=== PATIENT | female | born 1955 | race Caucasian/White ===

== ENCOUNTER 2018-09-03 12:12 | Emergency (ER) | payer OTHER ==
[~2018-09-03] VITALS: Ht 160 cm; Wt 56.7 kg
[2018-09-03] MEDS ORDERED: NEURONTIN100 MG ORAL (12:34)
[2018-09-03] MEDS ORDERED: METHOTREXATE2.5 MG PO (12:34)
[2018-09-03] MEDS ORDERED: PAXIL10 MG ORAL (12:34)
[2018-09-03 12:46] VITALS: BP 105/68
[2018-09-03] MEDS ORDERED: TYLENOL EXTRA500 MG ORAL (12:52)
[2018-09-03] MEDS ORDERED: ZOFRAN4 M3 ORAL (12:52)
[2018-09-03 12:57] VITALS: BP 100/64
--- NOTE | 2018-09-03 18:03 | Emergency Room Report ---
History of Present Illness General Chief Complaint: Nausea, Vomiting, and Diarrhea Source: Patient Present Illness HPI The patient is a 62-year-old female with a stated history of rheumatoid arthritis and seizure disorder presenting for nausea, vomiting, diarrhea, and abdominal cramps. She states that the symptoms developed last night and have all resolved except for the abdominal cramps. She does admit to recent travel from [place]. She admits to eating out for the past several days but denies any questionable preparation of food. She denies any known sick contacts.She is able to tolerate fluids and small amounts of food at this time. Currently, she denies symptoms including nausea, vomiting, fever, chills, diarrhea, fatigue, confusion, headache, back pain Allergies: Coded Allergies: CODEINE (Verified Allergy, Unknown, 09/03/18) Patient History Past Medical History: see triage record Pertinent Family History: none Reviewed Nursing Documentation: PMH: Agreed; PSxH: Agreed Nursing Documentation-PMH Past Medical History: No History, Except For Hx Seizures: Yes - 30 years ago Review of Systems All Other Systems: negative except mentioned in HPI Physical Exam Vital Signs Date Time Temp Pulse Resp B/P (MAP) Pulse Ox O2 Delivery O2 Flow Rate FiO2 09/03/18 12:27 98.1 76 17 100/64 98 Room Air Sp02 EP Interpretation: reviewed, normal General Appearance: no apparent distress, alert, GCS 15, non-toxic Head: normocephalic, atraumatic Eyes: bilateral eye normal inspection, bilateral eye PERRL Respiratory: chest non-tender, lungs clear, normal breath sounds, speaking full sentences Cardiovascular #1: regular rate, rhythm, no edema Gastrointestinal: normal bowel sounds, non tender, soft, no mass, non-distended , no guarding, no rebound Genitourinary: no CVA tenderness Musculoskeletal: back normal, gait/station normal, normal range of motion, non- tender Neurologic: alert, oriented x3, responsive, motor strength/tone normal, sensory intact, speech normal Psychiatric: judgement/insight normal, memory normal, mood/affect normal, no suicidal/homicidal ideation Skin: normal color, no rash, warm/dry, well hydrated Medical Decision Making PA Attestation Dr. Stafford is my supervising physician. Patient management was discussed with my supervising physician Diagnostic Impression: Primary Impression: Nausea, vomiting, and diarrhea ER Course Patient is a 62-year-old female presenting for symptoms including nausea, vomiting, diarrhea, and abdominal cramps x 1 day. Symptoms have resolved. Differential diagnoses considered but not limited to: Gastroenteritis, GERD, gastritis, appendicitis, pancreatitis PE: Vitals WNL. NAD. Abdomen: Normal appearance. Non distended. No ecchymosis. Normal BS. Abd soft and non tender. No McBurney point tenderness. No guarding. No CVA tenderness She will be DC'ed home with medication for symptomatic relief. Diet instructions given. She will F/U with PCP [facility]. ER precautions given to patient Including if she develops symptoms of fever, chills, abd pain, continued diarrhea/vomiting Last Vital Signs Date Time Temp Pulse Resp B/P (MAP) Pulse Ox O2 Delivery O2 Flow Rate FiO2 09/03/18 12:57 98.1 17 100/64 98 Room Air 09/03/18 12:46 79 Status: improved Disposition: HOME, SELF-CARE Condition: Improved Scripts Ondansetron* (ZOFRAN*) 4 Mg Tablet 4 MG ORAL Q6H PRN for Nausea & Vomiting, #10 TAB Prov: RUSSELL ANDREWS P.A. 09/03/18 Acetaminophen* (TYLENOL EXTRA STRENGTH*) 500 Mg Tablet 500 MG ORAL Q8H PRN for Prn Headache/Temp > 101, #30 TAB 0 Refills Prov: RUSSELL ANDREWS P.A. 09/03/18 Referrals: NOT CHOSEN IPA/MD,REFERRING (PCP) Patient Instructions: Nausea and Vomiting, Adult, Viral Gastroenteritis, Adult , Food Choices to Help Relieve Diarrhea, Adult Additional Instructions: I discussed my findings with the patient. All questions and concerns have been answered. Treatment and medication compliance have been addressed. I advised the patient that they need to follow up with primary doctor in 3-5 days. Return to ED if symptoms worsen, new symptoms arise, or if needed for any reason. Patient verbalized understanding of discharge instructions. Please return to ER if you experience continued nausea, vomiting, diarrhea, weakness, blood in stool, fever, or for any other symptoms. RUSSELL ANDREWS Sep 03, 2018 18:03
== END 2018-09-03 13:15 | disposition home or self-care (01) ==
LOC: EMR 13:09
DX: R11.2 Nausea with vomiting, unspecified (principal); R19.7 Diarrhea, unspecified; R10.9 Unspecified abdominal pain; M06.9 Rheumatoid arthritis, unspecified; Z88.5 Allergy status to narcotic agent
CPT/HCPCS: 99283